=== PATIENT | female | born 1955 | race Two or more races ===

== ENCOUNTER → 2017-01-11 | Outpatient (CLI) | payer MEDICAID ==
[~2017-01-11] VITALS: Ht 154.9 cm; Wt 67.6 kg
[~2017-01-11] MED LIST: ASPIR-LOW81 MG ORAL; BENAZEPRIL HCL20 MG ORAL; CYTOTEC200 MCG PO; DICLOFENAC SODI75 MG ORAL; DICYCLOMINE HCL20 M1 PO; FOLIC ACID1 MG ORAL; HYDROCHLOROTHIA25 MG ORAL; LORATADINE10 M1 PO; OMEPRAZOLE40 M1 ORAL; SIMVASTATIN40 MG ORAL; TUMS500 MG ORAL
--- NOTE | 2017-01-11 11:12 | GI Initial Consult Note ---
History of Present Illness General Date patient seen: Jan 11, 2017 Time patient seen: 10:59 Referring physician: NONE Reason for Consultation: EUS Present Illness HPI 61 year old female patient presents to [facility] today with c/of of epigastric pain and GERD. She presents with the following: - esophageal reflux without esophagitis - compensated with PPI tx. - gastric neoplasm, submucosal - hemorrhoids first degree - noted on colonoscopy in 2010 - personal history of colonic polyps. The patient had recent EGD performed 09/03/2016 noted with submucosal polyp in the antrum with bx. Here today to scheduled EUS for evaluation. The patient denies any unintentional weight loss or changes in dietary habits today. Home Meds Reported Medications Misoprostol (CYTOTEC) 200 Mcg Tablet, 200 MCG PO, TAB 01/11/17 Diclofenac Sod* (VOLTAREN*) 75 Mg Tablet.dr, 75 MG ORAL THREE TIMES A DAY, TAB 01/11/17 Calcium Carbonate (Calcium) 600 Mg Tablet, 500 MG ORAL THREE TIMES A DAY Y, #30 TAB 0 Refills 01/11/17 Hydrochlorothiazide* (HYDROCHLOROTHIAZIDE*) 25 Mg Tablet, 25 MG ORAL DAILY, TAB 01/11/17 Benazepril Hcl* (BENAZEPRIL HCL*) 20 Mg Tablet, 20 MG ORAL EVERY 12 HOURS, TAB 01/11/17 Loratadine (LORATADINE) 10 Mg Tab.rapdis, 10 MG PO, TAB 01/11/17 Folic Acid* (FOLIC ACID*) 1 Mg Tablet, 1 MG ORAL DAILY, TAB 01/11/17 Aspirin* (ASPIR-LOW*) 81 Mg Tablet.dr, 81 MG ORAL DAILY, TAB 01/11/17 Simvastatin (ZOCOR) 40 Mg Tablet, 40 MG ORAL BEDTIME, TAB 01/11/17 Omeprazole (OMEPRAZOLE) 40 Mg Capsule.dr, 40 MG ORAL DAILY, CAP 01/11/17 Dicyclomine Hcl (DICYCLOMINE HCL) 20 Mg Tablet, 20 MG PO, TAB 01/11/17 Med list reviewed/reconciled: Yes Allergies: Coded Allergies: No Known Allergies (Unverified , 01/11/17) Patient History History Provided By: Patient, Medical Record PMH Narrative HTN depression hemorrhoids PSHx B Knee replacement Lt arm Family History Narrative Mother >> breast CA Brother >> DM Social History: Reports: other - coffee Review of Systems All Other Systems: negative except mentioned in HPI Physical Exam T 97.9 BP 141/87 P 76 99 RA HT 5'1 WT 149 Sp02 EP Interpretation: reviewed General Appearance: well appearing, no apparent distress, alert Head: normocephalic EENT: normal ENT inspection Neck: supple Respiratory: normal breath sounds, no respiratory distress Cardiovascular: normal rate Gastrointestinal: normal inspection, non tender, soft, normal bowel sounds Rectal: deferred Genitourinary: normal inspection Musculoskeletal: normal inspection, back normal Neurologic: normal inspection, alert, oriented x3, responsive Psychiatric: normal inspection, judgement/insight normal, memory normal Skin: normal inspection, normal color, no rash, warm/dry, palpation normal, well hydrated, normal turgor Lymphatic: normal inspection, no adenopathy GI: Plan Problems: (1) HTN (hypertension) (2) Depression (3) Bleeding hemorrhoid (4) Hx of colonic polyp (5) GERD (gastroesophageal reflux disease) (6) Gastric neoplasm Plan EUS to be scheduled pending prior authorization, will contact patient. - NPO @ [place] day prior procedure explained to patient. Seen with Dr. Mcnally. Thank you for referring this patient. Mandy Conley N.P. Jan 11, 2017 11:12
[2017-01-11 15:32] VITALS: BP 141/87
== END | disposition home or self-care (01) ==
LOC: PAN 10:01
DX: K21.9 Gastro-esophageal reflux disease without esophagitis (principal); I10 Essential (primary) hypertension; K64.9 Unspecified hemorrhoids; F32.9 Major depressive disorder, single episode, unspecified; D49.0 Neoplasm of unspecified behavior of digestive system; Z86.010 Personal history of colon polyps; Z79.82 Long term (current) use of aspirin; Z96.653 Presence of artificial knee joint, bilateral; Z83.3 Family history of diabetes mellitus; Z80.3 Family history of malignant neoplasm of breast
CPT/HCPCS: 99201

== ENCOUNTER 2017-01-31 05:49 | Day surgery (SDC) | payer MEDICAID ==
[2017-01-31] VITALS (8 sets, daily range): BP systolic 123–155; BP diastolic 70–85
[~2017-01-31] VITALS: Ht 154.9 cm; Wt 66.2 kg
--- NOTE | 2017-01-31 09:26 | Pre-Procedure Note/Attestation ---
Pre-Procedure Note/Attestation Complete Prior to Procedure Planned Procedure: not applicable Procedure Narrative: EUS Indications for Procedure Pre-Operative Diagnosis: gastric submucosal lesion Attestation I attest that I discussed the nature of the procedure; its benefits; risks and complications; and alternatives (and the risks and benefits of such alternatives ), prior to the procedure, with the patient (or the patient's legal loan representative). I attest that, if there was a reasonable possibility of needing a blood transfusion, the patient (or the patient's legal loan representative) was given the [facility] standardized written summary, pursuant to the Hao Farrukh Blood Safety Act ([place] Health and Safety Code # 1645, as amended). I attest that I re-evaluated the patient just prior to the surgery and that there has been no change in the patient's H&P, except as documented below: YOKASTA KHAN Jan 31, 2017 09:26
--- NOTE | 2017-01-31 09:27 | Short Stay Surgery H&P ---
History of Present Illness History of Present Illness Chief Complaint see recent consult note HPI Sonja Garay is a 61 year old female who was admitted on for Submucosa Lesion Patient History Allergies: Uncoded Allergies: environment (Allergy, Intermediate, 01/31/17) coughing PAST MEDICAL HISTORY: Past Surgeries: Social History: Medication History Scheduled Aspirin* (Aspir-Low*), 81 MG ORAL DAILY, (Reported) Benazepril Hcl* (Benazepril Hcl*), 20 MG ORAL EVERY 12 HOURS, (Reported) Diclofenac Sod* (Voltaren*), 75 MG ORAL THREE TIMES A DAY, (Reported) Folic Acid* (Folic Acid*), 1 MG ORAL DAILY, (Reported) Hydrochlorothiazide* (Hydrochlorothiazide*), 25 MG ORAL DAILY, (Reported) Omeprazole (Omeprazole), 40 MG ORAL DAILY, (Reported) Simvastatin (Zocor), 40 MG ORAL BEDTIME, (Reported) Scheduled PRN Calcium Carbonate (Calcium), 500 MG ORAL THREE TIMES A DAY PRN, (Reported) Miscellaneous Medications Dicyclomine Hcl (Dicyclomine Hcl), 20 MG PO, (Reported) Loratadine (Loratadine), 10 MG PO, (Reported) Misoprostol (Cytotec), 200 MCG PO, (Reported) Physical Exam Vital Signs Last Vital Signs Date Time Temp Pulse Resp B/P Pulse Ox O2 Delivery O2 Flow Rate FiO2 01/31/17 06:32 97.6 67 18 135/78 97 Room Air Plan Attestation Are the patient's medical conditions optimized for surgery? YOKASTA KHAN Jan 31, 2017 09:27
[2017-01-31] MEDS ORDERED: Heplock Flush 100 units/ml 3 ml syr ONE (09:39)
--- NOTE | 2017-01-31 09:49 | Anethesia Preoperative Eval ---
Anesthesia Pre-op PMH/ROS General Date of Evaluation: Jan 31, 2017 Time of Evaluation: 09:33 ASA Score: ASA 2 Mallampati Score Class I : Soft palate, uvula, fauces, pillars visible Class II: Soft palate, uvula, fauces visible Class III: Soft palate, base of uvula visible Class IV: Only hard plate visible Mallampati Classification: Class II Anesthesia History: none Family History: no anesthesia problems Allergies: Uncoded Allergies: environment (Allergy, Intermediate, 01/31/17) coughing Medications: see eMAR Past Medical History Cardiovascular: Reports: HTN Anesthesia Pre-op Phys. Exam Physician Exam Last Vital Signs Date Time Temp Pulse Resp B/P Pulse Ox O2 Delivery O2 Flow Rate FiO2 01/31/17 06:32 97.6 67 18 135/78 97 Room Air Constitutional: NAD Neurologic: CN 2-12 intact Cardiovascular: RRR Respiratory: CTA Airway Exam Mallampati Score: Class II MO: full ROM: full Teeth: intact Anesthesia Pre-op A/P Risk Assessment & Plan Status Change Before Surgery: No Pre-Antibiotics Given Within 1 Hr of Incision: Seth Vences M.D. Jan 31, 2017 09:49
--- NOTE | 2017-01-31 09:51 | Immediate Post-Op Evaluation ---
Immediate Post-Op Evalulation Immediate Post-Op Evalulation Procedure: EGD/EUS Date of Evaluation: Jan 31, 2017 Time of Evaluation: 10:30 IV Fluids: 200 Blood Products: 0 Estimated Blood Loss: 0 Urinary Output: 0 Blood Pressure Systolic: 139 Blood Pressure Diastolic: 71 Pulse Rate: 85 Respiratory Rate: 14 O2 Sat by Pulse Oximetry: 99 Temperature (Fahrenheit): 98.5 Pain Score (1-10): 0 Nausea: No Vomiting: No Patient Status: awake, reacts, patent Hydration Status: adequate Given Within 1 Hr of Incision: Seth Vences M.D. Jan 31, 2017 09:51
[2017-01-31] MEDS ORDERED: Propofol 10mg/ml 20ml IV ONE (10:00)
[2017-01-31] MEDS ORDERED: fentaNYL 100 mcg/2 mL IV ONE (10:00)
[2017-01-31] MEDS ORDERED: Midazolam 2mg/2ml Inj ONE (10:00)
--- NOTE | 2017-01-31 10:05 | 48 Hour Post Anesthesia Eval ---
Post Anesthesia Evaluation Procedure: EGD/EUS Date of Evaluation: Feb 02, 2017 Time of Evaluation: 10:30 Blood Pressure Systolic: 134 0: 78 Pulse Rate: 74 Respiratory Rate: 15 Temperature (Fahrenheit): 98 O2 Sat by Pulse Oximetry: 100 Airway: patent Nausea: No Vomiting: No Hydration Status: adequate Mental Status/LOC: patient returned to baseline Follow-up care needed: patient intructions given Seth Gilbert M.D. Jan 31, 2017 10:05
[2017-01-31] MEDS ORDERED: Metoclopramide 10mg/2ml Inj IVP PRN (10:15)
[2017-01-31] MEDS ORDERED: fentaNYL 100 mcg/2 mL IV PRN (10:15)
--- NOTE | 2017-01-31 10:49 | Endoscopy Procedure Note ---
Endoscopy Procedure Note Indication for Procedure: gastric sub mucosal lesion Procedures Performed: EGD, other - EUS Operative Findings/Diagnosis: same Specimen: yes Pt Tolerated Procedure Well: Yes Estimated Blood Loss: none Anesthesiologist: see chart Anesthesia: MAC Implant(s) used?: No 50 yrs or older w/o bx or poly: Not Applicable YOKASTA KHAN Jan 31, 2017 10:49
--- NOTE | 2017-01-31 12:30 | Procedure Note ---
DATE OF PROCEDURE: 01/31/2017 SURGEON: Kb Mcnally M.D. PROCEDURE: Endoscopic ultrasound with fine needle aspiration and EGD. ANESTHESIOLOGIST: INSTRUMENT: Olympus adult flexible upper endoscope and EUS scope. INDICATION: Gastric submucosal lesion. REASON FOR PROCEDURE: The procedure, risks, benefits, and possible consequences, including hemorrhage, aspiration, perforation and infection, and alternative treatments, were explained to the patient/legal guardian by Dr. Kb Mcnally and the patient/legal guardian understood and accepted these risks. DESCRIPTION OF PROCEDURE: After informed consent was obtained and the patient was adequately sedated, Olympus upper endoscope was advanced from mouth into the second portion of the duodenum and retroflexion was performed in the stomach. The patient had a gastric submucosal lesion in the antrum of the stomach at about between 6 to 7 o'clock position in the posterior wall of the antrum. Measured roughly about 1 cm. At this time, the upper scope was retrieved and EUS scope was introduced. Scanning showed evidence of about 1.16 cm mixed submucosal lesion, highly suspicious for carcinoid given the look and the location of it. was limited to the submucosal lesion, did not muscularis propria layer. At this time, the EUS radial scope was removed and linear scope was introduced. We used a 25-gauge needle with the two passes of this lesion. The patient tolerated the procedure without any complication. SUMMARY OF FINDINGS: At 1.16 cm gastric submucosal lesion in the antrum of the stomach highly suspicious for carcinoid tumor given the echogenicity of this lesion. RECOMMENDATIONS: Follow fine-needle aspiration results and treat accordingly. Kb Mcnally M.D. DR: HENRIETTA JOB#: [id number] CC:
--- NOTE | 2017-02-02 15:46 | Cardiology Report ---
APPROVED REPORT EKG Measurement Heart [id number] [id number] Normal sinus rhythm Normal ECG
== END 2017-01-31 12:15 | disposition home or self-care (01) ==
LOC: GAS 05:49
DX: K31.9 Disease of stomach and duodenum, unspecified (principal); I10 Essential (primary) hypertension; Z79.82 Long term (current) use of aspirin; Z79.899 Other long term (current) drug therapy
CPT/HCPCS: 43238; 93005; J1642; J2250; J2704; J3010; Z7512; 94003; 94150

== ENCOUNTER → 2017-02-09 | Outpatient (CLI) | payer MEDICAID ==
[2017-02-09 14:10] VITALS: BP 126/74
--- NOTE | 2017-02-09 14:22 | General Progress Note ---
Assessment/Plan Problem List: (1) Depression ICD Codes: F32.9 - Major depressive disorder, single episode, unspecified SNOMED: 16381192 (2) GERD (gastroesophageal reflux disease) ICD Codes: K21.9 - Gastro-esophageal reflux disease without esophagitis SNOMED: 886931078 (3) HTN (hypertension) ICD Codes: I10 - Essential (primary) hypertension SNOMED: 29452661 (4) Bleeding hemorrhoid ICD Codes: K64.9 - Unspecified hemorrhoids SNOMED: 90670318 (5) Hx of colonic polyp ICD Codes: Z86.010 - Personal history of colonic polyps SNOMED: 202864376 Assessment/Plan 1.16 cm gastric sub mucosal lesion negative FNA plan repeat EUS in one year Subjective ROS Limited/Unobtainable: Yes Allergies: Uncoded Allergies: environment (Allergy, Intermediate, 01/31/17) coughing Objective Last 24 Hour Vital Signs Date Time Temp Pulse Resp B/P (MAP) Pulse Ox O2 Delivery O2 Flow Rate FiO2 02/09/17 14:10 98.5 69 16 126/74 General Appearance: alert EENT: normal ENT inspection Neck: normal alignment Cardiovascular: normal rate Respiratory/Chest: lungs clear Abdomen: normal bowel sounds, non tender, soft Extremities: non-tender YOKASTA KHAN Feb 09, 2017 14:22
== END | disposition home or self-care (01) ==
LOC: PAN 13:07
DX: K21.9 Gastro-esophageal reflux disease without esophagitis (principal); F32.9 Major depressive disorder, single episode, unspecified; I10 Essential (primary) hypertension; K64.9 Unspecified hemorrhoids; Z86.010 Personal history of colon polyps
CPT/HCPCS: 99211

== ENCOUNTER 2018-02-07 08:51 | Outpatient (CLI) | payer MEDICAID ==
[2018-02-07 09:12] VITALS: BP 134/76
--- NOTE | 2018-02-07 09:53 | GI Progress Note ---
Assessment/Plan Problems: (1) Gastric lesion ICD Codes: K31.9 - Disease of stomach and duodenum, unspecified SNOMED: 558450422 (2) Gastric neoplasm ICD Codes: D49.0 - Neoplasm of unspecified behavior of digestive system SNOMED: 677240877 (3) GERD (gastroesophageal reflux disease) ICD Codes: K21.9 - Gastro-esophageal reflux disease without esophagitis SNOMED: 851735336 (4) HTN (hypertension) ICD Codes: I10 - Essential (primary) hypertension SNOMED: 00504653 Status: stable Status Narrative Seen with Dr. Mcnally. Assessment/Plan EUS to be scheduled to evaluate gastric submucosal lesion pending prior authorization. - NPO @ [place] day prior procedure explained. - At 1.16 cm gastric submucosal lesion in the antrum of the stomach highly suspicious for carcinoid tumor given the echogenicity of this lesion. The patient was seen and examined at bedside and all new and available data was reviewed in the patients chart. I agree with the above findings, impression and plan. (Patient seen earlier today. Signature stamp does not reflect patient encounter time.). - Kb Mcnally MD Subjective Gastrointestinal/Abdominal: Reports: abdominal pain - vs discomfort Objective Last 24 Hour Vital Signs Date Time Temp Pulse Resp B/P (MAP) Pulse Ox O2 Delivery O2 Flow Rate FiO2 02/07/18 09:12 98.1 18 134/76 96 98.1 General Appearance: WD/WN, no apparent distress, alert Cardiovascular: normal rate Respiratory/Chest: normal breath sounds, no respiratory distress Abdominal Exam: normal bowel sounds, non tender, soft Extremities: normal range of motion, non-tender Vicky Conley EVENT OPERATIONS MANAGER Feb 07, 2018 09:53
== END 2018-02-07 09:21 | disposition home or self-care (01) ==
LOC: PAN 08:51
DX: K31.9 Disease of stomach and duodenum, unspecified (principal); D49.0 Neoplasm of unspecified behavior of digestive system; K21.9 Gastro-esophageal reflux disease without esophagitis; I10 Essential (primary) hypertension
CPT/HCPCS: 99212

== ENCOUNTER 2018-03-03 06:14 | Day surgery (SDC) | payer MEDICAID ==
[2018-03-03] VITALS (7 sets, daily range): BP systolic 119–146; BP diastolic 64–84
[~2018-03-03] VITALS: Ht 154.9 cm; Wt 66.2 kg
[2018-03-03] MEDS ORDERED: METFORMIN HCL500 M1 ORAL (07:10)
--- NOTE | 2018-03-03 07:51 | Pre-Procedure Note/Attestation ---
Pre-Procedure Note/Attestation Complete Prior to Procedure Planned Procedure: not applicable Procedure Narrative: egd/eus Indications for Procedure Pre-Operative Diagnosis: gastric submucosal lesion Attestation I attest that I discussed the nature of the procedure; its benefits; risks and complications; and alternatives (and the risks and benefits of such alternatives ), prior to the procedure, with the patient (or the patient's legal traffic representative). I attest that, if there was a reasonable possibility of needing a blood transfusion, the patient (or the patient's legal traffic representative) was given the [facility] standardized written summary, pursuant to the Hao Farrukh Blood Safety Act ([place] Health and Safety Code # 1645, as amended). I attest that I re-evaluated the patient just prior to the surgery and that there has been no change in the patient's H&P, except as documented below: Kb Mcnally MD Mar 03, 2018 07:51
--- NOTE | 2018-03-03 07:52 | Short Stay Surgery H&P ---
History of Present Illness History of Present Illness Chief Complaint gastric submucosal lesion HPI Sonja Garay is a 62 year old female who was admitted on for Gerd,Gastric Lesion Patient History Allergies: Uncoded Allergies: environment (Allergy, Intermediate, 01/31/17) coughing PAST MEDICAL HISTORY: (1) Gastric lesion (2) HTN (hypertension) (3) GERD (gastroesophageal reflux disease) (4) Hx of colonic polyp (5) Depression (6) Bleeding hemorrhoid Medication History Scheduled Aspirin* (Aspir-Low*), 81 MG ORAL DAILY, (Reported) Benazepril Hcl* (Benazepril Hcl*), 20 MG ORAL EVERY 12 HOURS, (Reported) Folic Acid* (Folic Acid*), 1 MG ORAL DAILY, (Reported) Hydrochlorothiazide* (Hydrochlorothiazide*), 25 MG ORAL DAILY, (Reported) Metformin Hcl* (Metformin Hcl*), 500 MG ORAL DAILY, (Reported) Scheduled PRN Calcium Carbonate (Calcium), 500 MG ORAL THREE TIMES A DAY PRN, (Reported) Review of Systems Cardiovascular: Reports: no symptoms Respiratory: Reports: no symptoms Skeletal: Reports: no symptoms Gastrointestinal: Reports: see HPI Genitourinary: Reports: no symptoms Neurologic: Reports: no symptoms Endocrine: Reports: no symptoms Hematologic: Reports: no symptoms Physical Exam Vital Signs Last Vital Signs Date Time Temp Pulse Resp B/P (MAP) Pulse Ox O2 Delivery O2 Flow Rate FiO2 03/03/18 07:15 Room Air 03/03/18 07:11 98.1 66 18 133/76 (95) 98 98.1 Skin: normal HENT: normal Heart: normal Lungs: normal Abdomen: normal Extremities: normal Plan Plan of Care EGd/EUS Attestation Are the patient's medical conditions optimized for surgery? Attestation Response: yes Kb Mcnally MD Mar 03, 2018 07:52
[2018-03-03] MEDS ORDERED: LR 1000ml ONE (08:30)
[2018-03-03] MEDS ORDERED: Propofol 200mg/20ml IV ONE (08:30)
--- NOTE | 2018-03-03 08:31 | Anethesia Preoperative Eval ---
Anesthesia Pre-op PMH/ROS General Date of Evaluation: Mar 03, 2018 Time of Evaluation: 08:00 ASA Score: ASA 2 Mallampati Score Class I : Soft palate, uvula, fauces, pillars visible Class II: Soft palate, uvula, fauces visible Class III: Soft palate, base of uvula visible Class IV: Only hard plate visible Mallampati Classification: Class II Allergies: Uncoded Allergies: environment (Allergy, Intermediate, 01/31/17) coughing Anesthesia Pre-op Phys. Exam Physician Exam Last Vital Signs Date Time Temp Pulse Resp B/P (MAP) Pulse Ox O2 Delivery O2 Flow Rate FiO2 03/03/18 07:15 Room Air 03/03/18 07:11 98.1 66 18 133/76 (95) 98 98.1 Airway Exam Mallampati Score: Class II Natalie Mcknight MD Mar 03, 2018 08:31
--- NOTE | 2018-03-03 08:57 | Endoscopy Procedure Note ---
Endoscopy Procedure Note General Indication for Procedure: gastric submucosal lesion Procedures Performed: EGD, other - EUS Operative Findings/Diagnosis: same Specimen: none Pt Tolerated Procedure Well: Yes Estimated Blood Loss: none Anesthesia Anesthesiologist: [place] Anesthesia: MAC Inserted Devices Implant(s) used?: No GI Core Measures 50 yrs or older w/o bx or poly: Not Applicable 10yrs. F/U not recommended: Not Applicable Kb Mcnally MD Mar 03, 2018 08:57
--- NOTE | 2018-03-03 09:36 | 48 Hour Post Anesthesia Eval ---
Post Anesthesia Evaluation Procedure: egd EUS Date of Evaluation: Mar 03, 2018 Time of Evaluation: 09:36 Nausea: No Vomiting: No Natalie Mcknight MD Mar 03, 2018 09:36
--- NOTE | 2018-03-03 12:00 | Procedure Note ---
DATE OF PROCEDURE: 03/03/2018 SURGEON: Kb Mcnally M.D. ANESTHESIOLOGIST: Dr. Mcknight. PROCEDURE: Upper endoscopy and endoscopic ultrasound. ANESTHESIA: Per Dr. Mcknight. INSTRUMENT: Olympus adult flexible upper endoscope and EUS scope. INDICATION: Gastric submucosal lesion. The procedure, risks, benefits, and possible consequences, including hemorrhage, aspiration, perforation and infection, and alternative treatments, were explained to the patient/legal guardian by Dr. Kb Mcnally and the patient/legal guardian understood and accepted these risks. DESCRIPTION OF PROCEDURE: After informed consent was obtained and the patient was adequately sedated, Olympus upper endoscope was advanced from mouth into the second portion of duodenum and retroflexion was performed in the stomach. The patient had evidence of gastric submucosal lesion in the antrum of the stomach in the prepyloric area which measured roughly about 1.1 or 1.2 cm in size. It was located around I would say 7 o'clock position in the prepyloric region. The rest of the exam was grossly within normal limit. At this time, the upper endoscope was retrieved and EUS scope was introduced. Starting scanning in the antrum of the stomach, we saw a 1.16 cm lesion mainly confined to the third layer of the gastric wall, so submucosal lesion mixed echoic. There was one or two anechoic areas in this lesion. Differential diagnosis would be most likely heterotrophic pancreas although there was no classical central cavitation on this lesion, but given the hypoechoic nature of it and this anechoic structure in it is suggestive of maybe a pancreatic duct suspicious for heterotrophic pancreas. Other differential diagnosis would be carcinoid, or inflammatory fibroid polyps. At this time, given, compared to last year, the size was almost same, we decided not to do FNA at this time. The patient tolerated procedure very well without any complication. SUMMARY OF FINDINGS: A 1.16-cm gastric submucosal lesion, mainly confined to the third layer of the gastric wall, so submucosal lesion with some anechoic structures in it. Differential diagnosis would heterotrophic pancreatic tissue versus inflammatory fibroid polyps versus carcinoid versus . Recommend further repeat EUS in one year. Kb Suhas Mcnally DR: El JOB#: [id number] CC:
--- NOTE | 2018-03-03 15:00 | Cardiology Report ---
APPROVED REPORT EKG Measurement Heart [id number] [place] 152P34 [id number] [id number] Normal sinus rhythm Cannot rule out Anterior infarct, age undetermined Abnormal ECG
== END 2018-03-03 16:00 | disposition home or self-care (01) ==
LOC: GAS 06:14 → EDBD 09:00 → GAS 10:00
DX: K31.9 Disease of stomach and duodenum, unspecified (principal); I10 Essential (primary) hypertension; K21.9 Gastro-esophageal reflux disease without esophagitis; F32.9 Major depressive disorder, single episode, unspecified; K64.9 Unspecified hemorrhoids; Z86.010 Personal history of colon polyps; Z79.82 Long term (current) use of aspirin
CPT/HCPCS: 43237; 82962; 93005; J2704; Z7512; 94003; 94150

== ENCOUNTER 2018-03-16 13:09 | Outpatient (CLI) | payer MEDICAID ==
[~2018-03-16 13:09] MED LIST changes: +METFORMIN HCL500 M1 ORAL
--- NOTE | 2018-03-16 13:14 | GI Progress Note ---
Assessment/Plan Problems: (1) Gastric lesion ICD Codes: K31.9 - Disease of stomach and duodenum, unspecified SNOMED: 463395806 (2) Hx of colonic polyp ICD Codes: Z86.010 - Personal history of colonic polyps SNOMED: 589678761 (3) HTN (hypertension) ICD Codes: I10 - Essential (primary) hypertension SNOMED: 77429654 (4) GERD (gastroesophageal reflux disease) ICD Codes: K21.9 - Gastro-esophageal reflux disease without esophagitis SNOMED: 689298774 (5) Depression ICD Codes: F32.9 - Major depressive disorder, single episode, unspecified SNOMED: 37652209 (6) Gastric neoplasm ICD Codes: D49.0 - Neoplasm of unspecified behavior of digestive system SNOMED: 349419938 Status: stable Status Narrative Seen with Dr. Mcnlaly. Assessment/Plan s/p EUS SUMMARY OF FINDINGS reviewed with patient: A 1.16-cm gastric submucosal lesion, mainly confined to the third layer of the gastric wall, so submucosal lesion with some anechoic structures in it. Differential diagnosis would heterotrophic pancreatic tissue versus inflammatory fibroid polyps versus carcinoid. RECOMMENDATIONS RTC prn Recommend further repeat EUS in one year. The patient was seen and examined at bedside and all new and available data was reviewed in the patients chart. I agree with the above findings, impression and plan. (Patient seen earlier today. Signature stamp does not reflect patient encounter time.). - Kb Mcnally MD Subjective Gastrointestinal/Abdominal: Reports: no symptoms Objective T 98.2 BP 125/69 P 74 97 RA General Appearance: WD/WN, no apparent distress, alert Cardiovascular: normal rate Respiratory/Chest: normal breath sounds, no respiratory distress Abdominal Exam: normal bowel sounds, non tender, soft Extremities: normal range of motion, non-tender Vicky Conley LACING OPERATOR Mar 16, 2018 13:14
[2018-03-16 13:27] VITALS: BP 125/69
== END 2018-03-16 13:39 | disposition home or self-care (01) ==
LOC: PAN 13:09
DX: K31.9 Disease of stomach and duodenum, unspecified (principal); Z86.010 Personal history of colon polyps; I10 Essential (primary) hypertension; K21.9 Gastro-esophageal reflux disease without esophagitis; F32.9 Major depressive disorder, single episode, unspecified; D49.0 Neoplasm of unspecified behavior of digestive system
CPT/HCPCS: G0463

== ENCOUNTER 2019-03-29 13:19 | Outpatient (CLI) | payer MEDICARE, MEDICAID ==
--- NOTE | 2019-03-29 14:56 | General Progress Note ---
Assessment/Plan Problem List: (1) Gastric lesion ICD Codes: K31.9 - Disease of stomach and duodenum, unspecified SNOMED: 544269788 (2) Gastric neoplasm ICD Codes: D49.0 - Neoplasm of unspecified behavior of digestive system SNOMED: 288909955 (3) HTN (hypertension) ICD Codes: I10 - Essential (primary) hypertension SNOMED: 23191499 (4) GERD (gastroesophageal reflux disease) ICD Codes: K21.9 - Gastro-esophageal reflux disease without esophagitis SNOMED: 639158183 (5) Depression ICD Codes: F32.9 - Major depressive disorder, single episode, unspecified SNOMED: 78137349 Assessment/Plan: SUMMARY OF FINDINGS: A 1.16-cm gastric submucosal lesion, mainly confined to the third layer of the gastric wall, so submucosal lesion with some anechoic structures in it. Differential diagnosis would heterotrophic pancreatic tissue versus inflammatory fibroid polyps versus carcinoid versus . Recommend further repeat EUS in one year. plan repeat EUS Subjective ROS Limited/Unobtainable: Yes Allergies: Uncoded Allergies: environment (Allergy, Intermediate, 01/31/17) coughing Objective General Appearance: alert EENT: normal ENT inspection Neck: supple Cardiovascular: normal rate Respiratory/Chest: decreased breath sounds Abdomen: normal bowel sounds, non tender, soft Extremities: non-tender Kb Mcnally MD Mar 29, 2019 14:56
[2019-03-29] MEDS ORDERED: HYDROCHLOROTHIA25 MG ORAL (15:23)
[2019-03-29] MEDS ORDERED: CHOLESTEROL MED (15:23)
== END 2019-03-29 16:20 | disposition home or self-care (01) ==
LOC: PAN 13:19
DX: K31.9 Disease of stomach and duodenum, unspecified (principal); D49.0 Neoplasm of unspecified behavior of digestive system; I10 Essential (primary) hypertension; K21.9 Gastro-esophageal reflux disease without esophagitis; F32.9 Major depressive disorder, single episode, unspecified
CPT/HCPCS: 99212

== ENCOUNTER 2019-05-04 07:12 | Day surgery (SDC) | payer MEDICARE, MEDICAID ==
[~2019-05-04] VITALS: Ht 154.9 cm; Wt 66.2 kg
[2019-05-04] VITALS (9 sets, daily range): BP systolic 102–130; BP diastolic 56–86
[~2019-05-04 07:12] MED LIST changes: +CHOLESTEROL MED; +LR 1000ml 1,000 ML IVLG SCH
[2019-05-04] MEDS ORDERED: ATORVASTATIN CA40 MG ORAL (09:24)
--- NOTE | 2019-05-04 09:39 | Pre-Procedure Note/Attestation ---
Pre-Procedure Note/Attestation Complete Prior to Procedure Planned Procedure: not applicable Procedure Narrative: eus Indications for Procedure Pre-Operative Diagnosis: gastric sub mucosa;l lesion Attestation I attest that I discussed the nature of the procedure; its benefits; risks and complications; and alternatives (and the risks and benefits of such alternatives ), prior to the procedure, with the patient (or the patient's legal field service representative). I attest that, if there was a reasonable possibility of needing a blood transfusion, the patient (or the patient's legal field service representative) was given the [facility] standardized written summary, pursuant to the [place] Blood Safety Act ([place] Health and Safety Code # 1645, as amended). I attest that I re-evaluated the patient just prior to the surgery and that there has been no change in the patient's H&P, except as documented below: Kb Mcnally MD May 04, 2019 09:39
--- NOTE | 2019-05-04 09:39 | Short Stay Surgery H&P ---
History of Present Illness History of Present Illness Chief Complaint gastric sub mucosal lesion HPI Sonja Garay is a 63 year old female who was admitted on for Gastric Lesion Patient History Allergies: Uncoded Allergies: environment (Allergy, Intermediate, 01/31/17) coughing PAST MEDICAL HISTORY: (1) Gastric lesion (2) HTN (hypertension) (3) GERD (gastroesophageal reflux disease) (4) Depression (5) Hx of colonic polyp (6) Bleeding hemorrhoid Medication History Scheduled Aspirin* (Aspir-Low*), 81 MG ORAL DAILY, (Reported) Atorvastatin Calcium* (Atorvastatin Calcium*), 40 MG ORAL BEDTIME, (Reported) Benazepril Hcl* (Benazepril Hcl*), 20 MG ORAL EVERY 12 HOURS, (Reported) Folic Acid* (Folic Acid*), 1 MG ORAL DAILY, (Reported) Hydrochlorothiazide* (Hydrochlorothiazide*), 25 MG ORAL DAILY, (Reported) Metformin Hcl* (Metformin Hcl*), 500 MG ORAL DAILY, (Reported) Scheduled PRN Calcium Carbonate (Calcium), 500 MG ORAL THREE TIMES A DAY PRN, (Reported) Review of Systems Cardiovascular: Reports: no symptoms Respiratory: Reports: no symptoms Skeletal: Reports: no symptoms Gastrointestinal: Reports: no symptoms Endocrine: Reports: no symptoms Hematologic: Reports: no symptoms Physical Exam Vital Signs Last Vital Signs Date Time Temp Pulse Resp B/P (MAP) Pulse Ox O2 Delivery O2 Flow Rate FiO2 05/04/19 09:31 Room Air 05/04/19 09:19 97.5 64 18 130/65 98 Skin: normal HENT: normal Heart: normal Lungs: normal Abdomen: normal Extremities: normal Plan Plan of Care EUS Attestation Are the patient's medical conditions optimized for surgery? Attestation Response: yes Kb Mcnally MD May 04, 2019 09:39
[2019-05-04] MEDS ORDERED: Lidocaine 1% MPF 10mg/ml 5ml ONE (10:05)
[2019-05-04] MEDS ORDERED: LR 1000ml ONE (10:05)
[2019-05-04] MEDS ORDERED: Propofol 200mg/20ml IV ONE (10:05)
--- NOTE | 2019-05-04 10:43 | Endoscopy Procedure Note ---
Endoscopy Procedure Note General Indication for Procedure: gastric sub mucosal lesion Procedures Performed: other - EUS Operative Findings/Diagnosis: same Specimen: none Pt Tolerated Procedure Well: Yes Estimated Blood Loss: none Anesthesia Anesthesiologist: jenn Anesthesia: MAC Inserted Devices Implant(s) used?: No GI Core Measures 50 yrs or older w/o bx or poly: Not Applicable 10yrs. F/U recommended: Not Applicable Kb Mcnally MD May 04, 2019 10:43
--- NOTE | 2019-05-04 10:56 | Anethesia Preoperative Eval ---
Anesthesia Pre-op PMH/ROS General Date of Evaluation: May 04, 2019 Time of Evaluation: 10:05 Anesthesiologist: Albertina ASA Score: ASA 2 Mallampati Score Class I : Soft palate, uvula, fauces, pillars visible Class II: Soft palate, uvula, fauces visible Class III: Soft palate, base of uvula visible Class IV: Only hard plate visible Mallampati Classification: Class II Surgeon: olive Diagnosis: Gastric Lesion Surgical Procedure: EUS Anesthesia History: none Family History: no anesthesia problems Allergies: Uncoded Allergies: environment (Allergy, Intermediate, 01/31/17) coughing Medications: see eMAR Patient NPO?: Yes NPO Date: May 04, 2019 NPO Time: 00:01 Past Medical History Cardiovascular: Reports: HTN; Denies: CAD, [place], valve dz, arrhythmia, other Pulmonary: Denies: asthma, COPD, MALGORZATA, other Gastrointestinal/Genitourinary: Reports: GERD, other - Gastric Lesion; Denies: CRI, ESRD Neurologic/Psychiatric: Denies: dementia, CVA, depression/anxiety, TIA, other Endocrine: Reports: DM; Denies: hypothyroidism, steroids, other HEENT: Denies: cataract (L), cataract (R), glaucoma, LOVELOCK (L), LOVELOCK (R), other Hematology/Immune: Denies: anemia, DVT, bleeding disorder, other Musculoskeletal/Integumentary: Denies: OA, RA, DJD, DDD, edema, other PSxH Narrative: EUS Anesthesia Pre-op Phys. Exam Physician Exam Last Vital Signs Date Time Temp Pulse Resp B/P (MAP) Pulse Ox O2 Delivery O2 Flow Rate FiO2 05/04/19 09:31 Room Air 05/04/19 09:19 97.5 64 18 130/65 98 Constitutional: NAD Neurologic: CN 2-12 intact Cardiovascular: RRR Respiratory: CTA Airway Exam Mallampati Classification 2 Mallampati Score: Class II MO: full ROM: full Dentures: no upper, no lower Anesthesia Pre-op A/P Studies Pre-op Studies: EKG - SR Risk Assessment & Plan Plan: MAC Pre-Antibiotics Drug: declined Tiffanie Eng CRNA May 04, 2019 10:56
--- NOTE | 2019-05-04 10:57 | Immediate Post-Op Evaluation ---
Immediate Post-Op Evalulation Immediate Post-Op Evalulation Procedure: EUS Date of Evaluation: May 04, 2019 Time of Evaluation: 10:49 IV Fluids: 600 Blood Pressure Systolic: 100 Blood Pressure Diastolic: 60 Pulse Rate: 65 Respiratory Rate: 14 O2 Sat by Pulse Oximetry: 100 Temperature (Fahrenheit): 97.8 Nausea: No Vomiting: No Patient Status: awake, reacts, patent Hydration Status: adequate Drug: declined Tiffanie Eng CRNA May 04, 2019 10:57
--- NOTE | 2019-05-04 11:30 | 48 Hour Post Anesthesia Eval ---
Post Anesthesia Evaluation Procedure: EUS Date of Evaluation: May 04, 2019 Time of Evaluation: 11:30 Blood Pressure Systolic: 115 0: 59 Pulse Rate: 51 Respiratory Rate: 14 O2 Sat by Pulse Oximetry: 97 Airway: patent Nausea: No Vomiting: No Hydration Status: adequate Cardiopulmonary Status: stable Mental Status/LOC: patient returned to baseline Follow-up Care/Observations: na Post-Anesthesia Complications: none Follow-up care needed: N/A Tiffanie Eng CRNA May 04, 2019 11:30
--- NOTE | 2019-05-04 16:15 | Procedure Note ---
DATE OF PROCEDURE: 05/04/2019 SURGEON: Kb Mcnally M.D. PROCEDURE: EUS. ANESTHESIA: Per LISA, Tiffanie. INSTRUMENT: Olympus adult EUS scope. INDICATION: Gastric submucosal lesion. REASON FOR PROCEDURE: The procedure, risks, benefits, and possible consequences, including hemorrhage, aspiration, perforation and infection, and alternative treatments, were explained to the patient/legal guardian by Dr. Kb Mcnally and the patient/legal guardian understood and accepted these risks. PROCEDURE IN DETAIL: After informed consent was obtained and the patient was adequately sedated, EUS scope was advanced from mouth into the second portion of the duodenum. Gastric lesion was seen in the prepyloric region at about 7 o'clock position, submucosal in nature. Based on the EUS findings, it looks like hypoechoic in nature with some anechoic structures within it suggestive of possibility of the pancreatic rest or heterotrophic pancreatic tissue versus carcinoid tissue versus inflammatory fibroid polyps. At this time, the measurement was about 1.3 cm, which is little increased compared to last year, which was 1.16, so it grew about a millimeter and half since last year. At this time, the scope was retrieved and the procedure was terminated. SUMMARY OF FINDINGS: About 1.3 cm gastric submucosal lesion in the prepyloric region and possible position in the antrum, hypoechoic with some anechoic structures within it suggestive of possibility of heterotopic pancreatic rest tissue. Other differential diagnosis will be carcinoid tumor versus inflammatory fibroid polyp. RECOMMENDATION: Our plan will be, given this grew little big compared to last year, we recommend just repeat EUS next year. At that time, if it is still growing we are going to do a biopsy. Kb Mcnally M.D. DR: ANABEL JOB#: [id number] CC:
== END 2019-05-04 12:10 | disposition home or self-care (01) ==
LOC: GAS 07:12
DX: K31.9 Disease of stomach and duodenum, unspecified (principal); I10 Essential (primary) hypertension; K21.9 Gastro-esophageal reflux disease without esophagitis; F32.9 Major depressive disorder, single episode, unspecified; Z86.010 Personal history of colon polyps; Z79.82 Long term (current) use of aspirin; Z79.899 Other long term (current) drug therapy; Z79.84 Long term (current) use of oral hypoglycemic drugs; E11.9 Type 2 diabetes mellitus without complications
CPT/HCPCS: 43231; 93005; J2704; J7120; 94003; 94150